=== PATIENT | male | born 1950 | race Caucasian/White ===

== ENCOUNTER → 2016-06-16 | Outpatient (CLI) | payer OTHER | LOC: GMAB 12:44 | PROVIDERS: ATTEND Family Medicine | DX: I10 Essential (primary) hypertension (principal); Z12.5 Encounter for screening for malignant neoplasm of prostate | CPT/HCPCS: 84443; G0103 ==

== ENCOUNTER → 2016-09-08 | Outpatient (CLI) | payer OTHER | END | disposition home or self-care (01) | LOC: LAB 16:41 | PROVIDERS: ATTEND Family Medicine | DX: R19.7 Diarrhea, unspecified (principal) ==

== ENCOUNTER → 2016-09-09 | Outpatient (CLI) | payer OTHER | END | disposition home or self-care (01) | LOC: LAB.O 11:23 | PROVIDERS: ATTEND Family Medicine | DX: R19.7 Diarrhea, unspecified (principal) ==

== ENCOUNTER → 2017-07-28 | Outpatient (CLI) | payer MEDICARE | LOC: GMAB 11:45 | PROVIDERS: ATTEND Family Medicine | DX: Z12.5 Encounter for screening for malignant neoplasm of prostate (principal); I10 Essential (primary) hypertension | CPT/HCPCS: 84443; G0103 ==

== ENCOUNTER 2018-02-24 13:48 | Emergency (ER) | payer MEDICARE, OTHER ==
[2018-02-24 14:11] VITALS: TEMP 96.9
--- NOTE | 2018-02-24 15:23 | RAD ---
EXAM DESCRIPTION: Abdomen Series CLINICAL HISTORY: 67 years Male, n/v COMPARISON: None. FINDINGS: The cardiomediastinal silhouette is unremarkable. There is no airspace consolidation or pleural effusion. There is no free subdiaphragmatic gas or intra-abdominal air fluid level. There is a moderate amount of stool and gas scattered throughout the colon, but the bowel gas pattern is nonobstructive. No suspicious intra-abdominal calcification or mass is identified, and the bones are unremarkable. IMPRESSION: No acute findings. Electronically signed by: Viktor Link MD 02/24/2018 3:21 PM CDT
--- NOTE | 2018-02-24 15:24 | CT ---
EXAM DESCRIPTION: Head CLINICAL HISTORY: 67 years, Male, confusion COMPARISON: None TECHNIQUE: Head CT was performed without IV contrast. This exam was performed according to our departmental dose-optimization program, which includes automated exposure control, adjustment of the mA and/or kV according to patient size and/or use of iterative reconstruction technique. FINDINGS: There is no acute intracranial hemorrhage. No midline shift or other mass effect. The ventricles and basilar cisterns are well maintained. No posterior fossa lesion. Riddle-white matter differentiation is intact. The basal ganglia are unremarkable. Visualized paranasal sinuses and orbits are unremarkable. No calvarial fracture. IMPRESSION: Negative exam. No apparent intracranial abnormality to explain confusion. Electronically signed by: Viktor Link MD 02/24/2018 3:23 PM CDT
--- NOTE | 2018-02-24 16:22 | ED.PDOC ---
History of Present Illness - General Chief Complaint: General Stated Complaint: dizziness,weakness,nausea Time Seen by Provider: 02/24/18 14:12 Source: patient Exam Limitations: no limitations - History of Present Illness Initial Comments: the patient is a 67-year-old male presenting to the emergency room secondary to some very mild delirium late last night followed by some nausea and vomiting as well as some fatigue today. No headache. No confusion today. No nuchal rigidity. No fever. No blood or bile in the vomitus. No continued vomiting. No diarrhea or constipation. No syncope or near syncope. No focal neurological changes. No recent trauma. No recent medication changes. He does take meclizine periodically for some dizziness. Timing/Duration: unsure Severity: mild Improving Factors: nothing Worsening Factors: nothing Associated Symptoms: denies symptoms Allergies/Adverse Reactions: Allergies Penicillins Allergy (Verified 02/24/18 14:11) Home Medications: Ambulatory Orders Ascorbic Acid [Vitamin C Plus [place] 500 mg] 1 chw PO DAILY 02/24/18 B-Complex W/ C & Folic Acid [Super B-Complex/Vitamin C] 1 tab PO DAILY 02/24/18 Calcium Carbonate-Vitamin D [Calcium 600+D 600-200 mg-Unit] 1 tab PO DAILY 02/24 Cholecalciferol [Vitamin D3] 5,000 unit PO DAILY 02/24/18 Coenzyme Q10 (Ubidecarenone) [Coq-10] 100 mg PO DAILY 02/24/18 Flaxseed (Linseed) [Flaxseed Oil] 1 cap PO DAILY 02/24/18 Garlique 1 each PO DAILY 02/24/18 Losartan Potassium 50 mg PO DAILY 02/24/18 Lysine HCl [l-Lysine] 500 mg PO DAILY 02/24/18 Meclizine HCl [Meclizine 25] 25 mg PO DAILY 02/24/18 Naproxen Sodium 220 mg PO DAILY 02/24/18 [place]-3 Fatty Acids [Fish Oil Ultra 1400 mg] 1 cap PO DAILY 02/24/18 Ondansetron [Zofran Odt] 4 mg PO Q4H PRN #10 tab 02/24/18 Pantoprazole Sodium 40 mg PO DAILY 02/24/18 Probiotic Product [Probiotic-10] 1 cap PO DAILY 02/24/18 predniSONE [Prednisone] 20 mg PO DAILY #30 tab 02/24/18 Review of Systems - Review of Systems Constitutional: States: malaise EENTM: States: no symptoms reported Respiratory: States: no symptoms reported Cardiology: States: no symptoms reported Gastrointestinal/Abdominal: States: nausea, vomiting Genitourinary: States: no symptoms reported Musculoskeletal: States: no symptoms reported Skin: States: no symptoms reported Neurological: States: other - mild confusion Endocrine: States: no symptoms reported All other Systems: No Change from Baseline Past Medical History (General) - Patient Medical History Hx Stroke: No Hx Congestive Heart Failure: No Hx Hypertension: Yes Hx Diabetes: No Hx Gastroesophageal Reflux: Yes - Vaccination History Hx Influenza Vaccination: Yes - 02/10/18 Hx Pneumococcal Vaccination: Yes - Social History Hx Tobacco Use: Yes Family Medical History - Family History Father Family History: Unknown Living Status: Unknown Physical Exam - Physical Exam General Appearance: Alert, Comfortable, No apparent distress Eye Exam: bilateral normal Ears, Nose, Throat: hearing grossly normal, normal ENT inspection, normal pharynx Neck: non-tender - no nuchal rigidity or meningeal signs, full range of motion, supple Respiratory: lungs clear, normal breath sounds, no respiratory distress, no accessory muscle use Cardiovascular/Chest: normal peripheral pulses, regular rate, rhythm, no edema Peripheral Pulses: radial,right: 2+, radial,left: 2+, dorsalis pedis,right: 2+, dorsalis pedis,left: 2+ Gastrointestinal/Abdominal: non tender, soft Rectal Exam: deferred Back Exam: no CVA tenderness, no vertebral tenderness Extremity: normal range of motion, non-tender, normal inspection, no pedal edema , normal capillary refill 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 Workup including head CT, abdominal series and lab work failed to show any definitive pathology. Most likely the patient has a viral syndrome giving him some delirium and gastroenteritis. I would recommend that he increase his fluid intake over the next few days. I would also recommend that he take an extra strength Tylenol at night for the next few days. I would also recommend that he hold his meclizine for the next 3 or 4 days as well as this may be worsening any confusion. He'll be written for Zofran for as needed use for any further nausea and vomiting and he will be written for Pepcid for the next couple of weeks to heal any gastritis that is present. ER warnings were given. He should plan on following up with his primary care doctor early next week for reevaluation or returning here for any worsening whatsoever. at this point in time the patient does look good. - Results/Orders Results/Orders: EKG shows mild sinus bradycardia at 56 bpm. Normal R-wave progression. Normal axis. No acute ST segment or T-wave changes concerning for acute ischemia. Normal corrected QT interval. CT scan of the head shows no acute pathology. Acute abdominal series shows no acute pathology. Laboratory Tests 02/24/18 02/24/18 02/24/18 14:59 14:59 14:59 WBC 6.9 RBC 4.87 Hgb 15.0 Hct 44.0 MCV 90.4 MCH 30.9 MCHC 34.1 RDW 13.2 Plt Count 229 MPV 6.3 L Absolute Neuts (auto) 5.10 Absolute Lymphs (auto) 1.30 Absolute Monos (auto) 0.40 Absolute Eos (auto) 0.10 Absolute Basos (auto) 0.00 Neutrophils % 74.1 Lymphocytes % 18.2 L Monocytes % 6.4 Eosinophils % 0.8 L Basophils % 0.5 D-Dimer, Quantitative 0.21 Sodium 135 Potassium 4.1 Chloride 100 L Carbon Dioxide 27 Anion Gap 12.1 BUN 17 Creatinine 1.19 BUN/Creatinine Ratio 14.3 Random Glucose 105 Serum Osmolality 272.0 L Lactic Acid Calcium 9.3 Total Bilirubin 1.0 AST 28 ALT 25 Alkaline Phosphatase 47 Ammonia Creatine Kinase 449 H* CK-MB (CK-2) 1.9 CK-MB (CK-2) % Not Reportable Troponin I < 0.02 B-Natriuretic Peptide < 5.0 Serum Total Protein 6.7 Albumin 4.1 Globulin 2.6 Albumin/Globulin Ratio 1.6 Amylase 63 TSH 1.08 Urine Color Urine Appearance Urine pH Ur Specific [place] Urine Protein Urine Glucose (UA) Urine Ketones Urine Blood Urine Nitrite Urine Bilirubin Urine Urobilinogen Ur Leukocyte Esterase Urine RBC Urine WBC Ur Epithelial Cells Urine Bacteria 02/24/18 02/24/18 02/24/18 14:59 14:59 15:15 WBC RBC Hgb Hct MCV MCH MCHC RDW Plt Count MPV Absolute Neuts (auto) Absolute Lymphs (auto) Absolute Monos (auto) Absolute Eos (auto) Absolute Basos (auto) Neutrophils % Lymphocytes % Monocytes % Eosinophils % Basophils % D-Dimer, Quantitative Sodium Potassium Chloride Carbon Dioxide Anion Gap BUN Creatinine BUN/Creatinine Ratio Random Glucose Serum Osmolality Lactic Acid 1.5 Calcium Total Bilirubin AST ALT Alkaline Phosphatase Ammonia 11 Creatine Kinase CK-MB (CK-2) CK-MB (CK-2) % Troponin I B-Natriuretic Peptide Serum Total Protein Albumin Globulin Albumin/Globulin Ratio Amylase TSH Urine Color Yellow Urine Appearance Clear Urine pH 7.0 Ur Specific [place] 1.015 Urine Protein Negative Urine Glucose (UA) Negative Urine Ketones Negative Urine Blood Negative Urine Nitrite Negative Urine Bilirubin Negative Urine Urobilinogen 0.2 Ur Leukocyte Esterase Negative Urine RBC 0 Urine WBC 0 Ur Epithelial Cells 0 Urine Bacteria 0 Departure - Departure Clinical Impression: Delirium, Gastroenteritis Disposition: Discharge to Home or Self Care Condition: Fair Departure Forms: ED Discharge - Pt. Copy, Patient Portal Self Enrollment Instructions: Delirium (Confusion) (DC), Viral Gastroenteritis, Adult (DC) Diet: bland diet Activity: increase activity as tolerated Referrals: EMILIA JACKSON MD [Primary Care Provider] - 1-2 Weeks Prescriptions: Ondansetron [Zofran Odt] 4 mg PO Q4H PRN #10 tab PRN Reason: Vomiting predniSONE [Prednisone] 20 mg PO DAILY #30 tab Home Medications: Ambulatory Orders Ascorbic Acid [Vitamin C Plus [place] 500 mg] 1 chw PO DAILY 02/24/18 B-Complex W/ C & Folic Acid [Super B-Complex/Vitamin C] 1 tab PO DAILY 02/24/18 Calcium Carbonate-Vitamin D [Calcium 600+D 600-200 mg-Unit] 1 tab PO DAILY 02/24 Cholecalciferol [Vitamin D3] 5,000 unit PO DAILY 02/24/18 Coenzyme Q10 (Ubidecarenone) [Coq-10] 100 mg PO DAILY 02/24/18 Flaxseed (Linseed) [Flaxseed Oil] 1 cap PO DAILY 02/24/18 [place] 1 each PO DAILY 02/24/18 Losartan Potassium 50 mg PO DAILY 02/24/18 Lysine HCl [l-Lysine] 500 mg PO DAILY 02/24/18 Meclizine HCl [Meclizine 25] 25 mg PO DAILY 02/24/18 Naproxen Sodium 220 mg PO DAILY 02/24/18 [place]-3 Fatty Acids [Fish Oil Ultra 1400 mg] 1 cap PO DAILY 02/24/18 Ondansetron [Zofran Odt] 4 mg PO Q4H PRN #10 tab 02/24/18 Pantoprazole Sodium 40 mg PO DAILY 02/24/18 Probiotic Product [Probiotic-10] 1 cap PO DAILY 02/24/18 predniSONE [Prednisone] 20 mg PO DAILY #30 tab 02/24/18 Additional Instructions: the patient is a 67-year-old male presenting to the emergency room secondary to mild confusion last night and some nausea and vomiting this morning. Workup including head CT, abdominal series and lab work failed to show any definitive pathology. Most likely the patient has a viral syndrome giving him some delirium and gastroenteritis. I would recommend that he increase his fluid intake over the next few days. I would also recommend that he take an extra strength Tylenol at night for the next few days. I would also recommend that he hold his meclizine for the next 3 or 4 days as well as this may be worsening any confusion. He'll be written for Zofran for as needed use for any further nausea and vomiting and he will be written for Pepcid for the next couple of weeks to heal any gastritis that is present. ER warnings were given. He should plan on following up with his primary care doctor early next week for reevaluation or returning here for any worsening whatsoever. at this point in time the patient does look good.
[2018-02-24 16:42] VITALS: BP 149/94; O2SAT 99
== END 2018-02-24 16:42 | disposition home or self-care (01) ==
LOC: ER 13:48
DX: K52.9 Noninfective gastroenteritis and colitis, unspecified (principal); R41.0 Disorientation, unspecified; I10 Essential (primary) hypertension; K21.9 Gastro-esophageal reflux disease without esophagitis; Z79.899 Other long term (current) drug therapy; Z88.0 Allergy status to penicillin; Z87.891 Personal history of nicotine dependence